=== PATIENT | female | born 1975 | race Caucasian/White ===

== ENCOUNTER → 2019-12-03 08:19 | Outpatient (BNVA) | payer MEDICAID, SELFPAY | PROVIDERS: PCP Nurse Practitioner Family; Referring Provider Nurse Practitioner Family; Visit Provider Specialist | DX: G40.909 Epilepsy, unspecified, not intractable, without status epilepticus (principal); R93.89 Abnormal findings on diagnostic imaging of other specified body structures; G93.89 Other specified disorders of brain; G43.711 Chronic migraine without aura, intractable, with status migrainosus; F17.210 Nicotine dependence, cigarettes, uncomplicated | CPT/HCPCS: 99204 ==

== ENCOUNTER → 2020-03-25 07:43 | Outpatient (BNVA) | payer MEDICAID, SELFPAY | PROVIDERS: PCP Nurse Practitioner Family; Visit Provider Specialist | DX: G40.309 Generalized idiopathic epilepsy and epileptic syndromes, not intractable, without status epilepticus (principal); F17.210 Nicotine dependence, cigarettes, uncomplicated | CPT/HCPCS: 95816 ==

== ENCOUNTER → 2020-06-04 14:22 | Outpatient (BNVA) | payer MEDICAID, SELFPAY | PROVIDERS: PCP Nurse Practitioner Family; Visit Provider Specialist | DX: G40.309 Generalized idiopathic epilepsy and epileptic syndromes, not intractable, without status epilepticus (principal); G43.711 Chronic migraine without aura, intractable, with status migrainosus; G93.89 Other specified disorders of brain; F32.9 Major depressive disorder, single episode, unspecified; M75.52 Bursitis of left shoulder; M79.7 Fibromyalgia | CPT/HCPCS: 20550; 99214; J1030; J3490 ==

== ENCOUNTER 2020-06-13 11:23 | Outpatient (CLI) | payer MEDICAID, SELFPAY ==
--- NOTE | 2020-06-13 11:00 | MR_ITS ---
WS: [id number] MRI BRAIN WITH AND WITHOUT CONTRAST HISTORY: abnormal MRI, abnormal lesions. COMPARISON: 07/11/2009 TECHNIQUE: Multiplanar imaging performed through the brain with Prohance 17 ml's IV. No acute infarcts are seen. Meyer-white matter differentiation is well preserved. Seen on the FLAIR se quence is a focal area of increased signal in the medial cortex of the LEFT temporal lobe without enh ancement. There is a additional subtle area of increased signal adjacent to the frontal horn of the L EFT lateral ventricle. No Mccurdy's finger. There are additional scattered subcortical white matter le sions. As compared to 2008 these findings are stable with no progression or enhancement. No volume lo ss or atrophy. No signal abnormalities within the brainstem or the cerebellum. No susceptibility artifacts or prior lacunar infarcts. Ventricles and extra-axial spaces are normal. Clivus and pituitary gland are normal. Visualized posterior fossa and brainstem are also normal. No abnormality within the orbits or globes. Postcontrast images are negative for masses or vascular malformations. Dural venous sinuses are normal. Paranasal sinuses: Well aerated with no significant disease. Mastoid air cells: Normal. Calvarium and scalp: Normal. MR/MR head wo/w con [id number] IMPRESSION: 1. LEFT temporal lobe and LEFT frontal horn T2 and FLAIR signal hyperintensiti es without enhancement. The LEFT temporal lobe lesions can be seen with early c hanges of multiple sclerosis. There has been no progression in size or enhancem ent since 2008. 2. No mesial temporal sclerosis. The increased signal in the LEFT temporal lob e also could be a focus for seizures. 3. Otherwise negative.
== END 2020-06-13 11:24 | disposition home or self-care (01) ==
LOC: RADSHAW 11:27
PROVIDERS: PCP Nurse Practitioner Family; Visit Provider Specialist
DX: R93.89 Abnormal findings on diagnostic imaging of other specified body structures (principal); G93.9 Disorder of brain, unspecified
CPT/HCPCS: 70553; A9579

== ENCOUNTER → 2020-12-17 08:59 | Outpatient (BNVA) | payer MEDICAID, SELFPAY | PROVIDERS: PCP Nurse Practitioner Family; Visit Provider Specialist | DX: G40.309 Generalized idiopathic epilepsy and epileptic syndromes, not intractable, without status epilepticus (principal); F17.210 Nicotine dependence, cigarettes, uncomplicated | CPT/HCPCS: 99214 ==

== ENCOUNTER → 2022-06-16 15:14 | Outpatient (BNVA) | payer MEDICAID, SELFPAY | PROVIDERS: PCP Nurse Practitioner Family; Visit Provider Specialist | DX: G40.309 Generalized idiopathic epilepsy and epileptic syndromes, not intractable, without status epilepticus (principal); R51.9 Headache, unspecified | CPT/HCPCS: 99214 ==

== ENCOUNTER → 2023-08-15 14:27 | Outpatient (BNVA) | payer OTHER, MEDICAID, SELFPAY | PROVIDERS: PCP Nurse Practitioner Family; Visit Provider Specialist | DX: G40.309 Generalized idiopathic epilepsy and epileptic syndromes, not intractable, without status epilepticus (principal); G43.909 Migraine, unspecified, not intractable, without status migrainosus | CPT/HCPCS: 99213 ==